=== PATIENT | female | born 1945 | race Caucasian/White ===

== ENCOUNTER → 2020-10-20 12:34 | Outpatient (CLI) | payer MEDICARE, BC | END | disposition home or self-care (01) | LOC: D.LAB 12:16 | PROVIDERS: ATTEND Thoracic Surgery (Cardiothoracic Vascular Surgery) | DX: Z11.52 Encounter for screening for COVID-19 (principal) ==

== ENCOUNTER 2020-10-26 13:42 | Inpatient (IN) | payer MEDICARE, BC ==
[~2020-10-26] VITALS: Ht 165.1 cm; Wt 64.7 kg
[2020-10-26] MEDS ORDERED: BAYER CHEWABLE81 MG PO (14:22)
[2020-10-26] MEDS ORDERED: CRESTOR5 MG PO (14:23)
[2020-10-26] MEDS ORDERED: MOBIC7.5 MG PO (14:23)
[2020-10-26] MEDS ORDERED: CENTRUM SILVER1 EAC3 PO (14:23)
[2020-10-26] MEDS ORDERED: VITAMIN D325 MC1 PO (14:23)
[2020-10-26] MEDS ORDERED: TRIAMTERENE-HC1 EAC3 PO (14:24)
[2020-10-26] MEDS ORDERED: VITAMIN B-122500 MCG PO (14:24)
[2020-10-26] MEDS ORDERED: [UNRECOGNIZED DRUG - CODE] PO (14:25)
[2020-10-26 15:41] LABS: BILIRUBIN NEGATIVE (NEGATIVE); KETONE NEGATIVE (NEGATIVE); NITRITE NEGATIVE (NEGATIVE); UROBILINOGEN NORMAL mg/dL (< 2)
[2020-10-26 17:02] LABS: HEMATOCRIT 37.3 % (36.0-48.0); HEMOGLOBIN 13.1 g/dL (12-16); MCH 31.6 pg (26.0-34.0); MCHC 35.1 g/dL (31.0-37.0); MCV 89.9 fL (80.0-100.0); MEAN PLATELET VOLUME 8.9 fL (7.4-10.4); RBC 4.15 10x6/uL (4.00-5.40); RDW 12.1 % (11.5-14.5); WBC 7.6 10x3/uL (4.8-10.8)
[2020-10-26 17:09] LABS: APTT 30.3 SECONDS (22.8-39.4); INR 1.07 (0.85-1.17); PROTIME 12.9 SECONDS (11.6-15.0)
[2020-10-26 17:18] LABS: ALBUMIN 4.4 g/dL (3.4-5.0); ANION GAP 11.9 mmol/L (8-16); BILIRUBIN - TOTAL 0.3 mg/dL (0.2-1.3); CALCIUM 9.7 mg/dL (8.5-10.1); CARBON DIOXIDE 29.8 mmol/L (21.0-32.0); CREATININE - SERUM 0.9 mg/dL (0.6-1.3); PROTEIN - SERUM 7.7 g/dL (6.4-8.2)
[2020-10-26 17:23] LABS: POTASSIUM - SERUM 2.7 mmol/L (3.5-5.1)
[2020-10-30] VITALS (21 sets, daily range): BP systolic 86–146; BP diastolic 42–78; BMI 23.6; BMI 28.1
--- NOTE | 2020-10-30 12:45 | NUR ---
PT ARRIVED VIA BED, RR EVEN AND UNLABORED ON 15L SIMPLE MASK. VSS (SEE FLOWSHEET FOR DETAILS). PT ABLE TO FOLLOW SIMPLE COMMANDS, GROGGY, BUT AROUSES WITH VERBAL STIMULI. INCISION WITH X2 CHEST TUBES NOTED TO LEFT LATERAL CHEST. DRESSING CDI. LEFT SUBCLAVIAN CVL NOTED. NITRO INFUSING @ 5 MLS/HR. NS INFUSING @ 10MLS/HR. PT IS ORIENTED X4. EPIDURAL NOTED TO LOWER BACK. INFUSING FENTANYL PER ANESTHESIA. DENIES NEEDS OR PAIN AT THIS TIME. BED RAILS UP X2.
--- NOTE | 2020-10-30 18:33 | NUR ---
PT INSTRUCTED ON USE OF INCENTIVE SPIROMETER. ABLE TO REACH 1000. VEBALIZED UNDERSTANDING AND RETURN DEMONSTRATED.
--- NOTE | 2020-10-30 19:17 | NUR ---
I have reviewed this patient and I concur with the Shift Assessment completed by the Licensed Practical Nurse today this shift.
--- NOTE | 2020-10-30 19:30 | NUR ---
REPORT REC'D AND CARE ASSUMED, REC'D PT SITTING UP IN BED VISITING WITH SIG OTHER, AWAKE, ALERT, AND ORIENTED X 4, O2 @ 2 LITERS VIA NC, PT DENIES PAIN AT THIS TIME, LDLSCL DRSG CDI WITH PLASMALYTE @ 3O AND ZINACEF @ 12.8CC/HR, LEFT LATERAL INCISION CDI, LEFT LATERAL CT TO 20CM H2O SUCTION, NO AIR LEAK NOTED, LEFT RADIAL SEKOU WITH FLEXION BOARD IN USE, SEKOU LEVELED AND ZEROED WITH RETURN OF APPROPRIATE WAVEFORM, DODSON PATENT DRAINING CLEAR YELLOW URINE, BILAT TEDS AND SCDS INTACT AND ON, EPIDURAL TAPED SECURELY TO LOWER BACK INFUSING @ 4MG/HR WITH 3MG Q15MIN BREAKTHROUGH BOLUS, PPP, AIR OVERLAY MATTRESS IN USE, ICE CHIPS PROVIDED ON REQUEST, BED IN LOW POSITION, CALL LIGHT IN REACH.
--- NOTE | 2020-10-30 20:55 | NUR ---
EVENING MEDS GIVEN, SIG OTHER REMAINS AT BS VISITING WITH PATIENT, PT DENIES PAIN OR NEEDS, USING EPIDURAL BOLUS BUTTON NEEDED, VSS.
--- NOTE | 2020-10-30 23:30 | NUR ---
BP DECREASED TO 88/45, PT AWAKE WATCHING TV, REPOSITIONED IN BED BP CONTINUES TO DROP BELOW 90 SYSTOLIC, NEOSYNEPHRINE GTT BEGAN AT 0.1MCG/KG/MIN OR 2.3CC, WILL MONITOR CLOSELY FOR CHANGES.
[2020-10-31] VITALS (45 sets, daily range): BP systolic 92–151; BP diastolic 41–76; BMI 29.3
--- NOTE | 2020-10-31 02:00 | NUR ---
TITRATING JUAN GTT NEEDED, ATTEMPTING TO WEAN AT THIS TIME
[2020-10-31 05:41] LABS: BASOPHILS 0.1 % (0-2); EOSINOPHILS 0 % (0-7); HEMATOCRIT 29.1 % (36.0-48.0); HEMOGLOBIN 10.5 g/dL (12-16); IMMATURE GRANULOCYTES 0.3 % (0-5); LYMPHOCYTE ABS# 0.76 10x3/uL (1.18-3.74); LYMPHOCYTES 7.8 % (15-50); MCHC 36.1 g/dL (31.0-37.0); MCV 88.7 fL (80.0-100.0); MEAN PLATELET VOLUME 8.8 fL (7.4-10.4); MONOCYTES 10.4 % (2-11); NEUTROPHIL ABS# 7.96 10x3/uL (1.56-6.13); NEUTROPHILS 81.4 % (40-80); PLATELET COUNT 226 10x3/uL (130-400); RBC 3.28 10x6/uL (4.00-5.40); WBC 9.8 10x3/uL (4.8-10.8)
[2020-10-31 06:13] LABS: ALBUMIN 3.1 g/dL (3.4-5.0); ANION GAP 15.4 mmol/L (8-16); BILIRUBIN - TOTAL 0.27 mg/dL (0.2-1.3); CALCIUM 8.1 mg/dL (8.5-10.1); CARBON DIOXIDE 22.7 mmol/L (21.0-32.0); CREATININE - SERUM 1.1 mg/dL (0.6-1.3); POTASSIUM - SERUM 3.1 mmol/L (3.5-5.1); PROTEIN - SERUM 5.7 g/dL (6.4-8.2)
--- NOTE | 2020-10-31 14:51 | OP ---
PATIENT NAME: ISABELLE LI MEDICAL RECORD: [id number] :47 LOCATION:[facility] [address] [facility].[id number] ADMISSION DATE:10/30/20 SURGEON: GRAY ISSA MD DATE OF OPERATION: 10/30/2020 SURGEON: Gray Issa MD PROCEDURE PERFORMED: Left video-assisted thoracoscopic surgery with wedge resection left upper lobe, left upper lobectomy, mediastinal lymph node dissection, bronchoscopy. PREOPERATIVE DIAGNOSIS: Invasive adenocarcinoma. POSTOPERATIVE DIAGNOSIS: Invasive adenocarcinoma, T1 N0 M0. ANESTHESIA: Double lumen general endotracheal anesthesia. ESTIMATED BLOOD LOSS: 25 cc. COMPLICATIONS: None. SPECIMENS: 1. Wedge resection, left upper lobe. 2. Lobectomy left upper lobe. 3. Lymph nodes from inferior pulmonary ligament, subcarinal, inferior hilar, interlobar, peribronchial. No sizable AP window lymph node was identified. COMPLICATIONS: None. CONDITION: Stable. DISPOSITION: ICU. OPERATIVE FINDINGS: 1. Thoracoscopy with no adhesions at the site of previous radiation therapy for unrelated tumor and a small posterior working thoracotomy as the tumor was within the lung parenchyma and not easily visualized by thoracoscopy. The tumor was wedged and again returned invasive adenocarcinoma. The fissures were nearly complete. 2. Thoracoscopic guided dissection with lobectomy bronchus airtight under 20 cm of water. 3. Five lymph node stations dissected. 4. Rib fracture anteriorly at the site of the camera and the small portion of the rib was removed under direct visualization. INDICATION: Adenocarcinoma. PROCEDURE IN DETAIL: The patient was brought to the operating suite. General anesthesia was obtained, the patient prepped and draped in the right lateral decubitus position with appropriate padding. The scope was placed in approximately the anterior axillary line, directed upwardly. No intrathoracic adhesions were noted. The fissures were well developed. A posterior working thoracotomy was performed. The tumor was felt under direct palpation and wedge resection was used with staple lines to remove the tumor, which was sent for frozen section. The hilar dissection was completed and after the tumor returned OPERATIVE REPORT [id number] ISABELLE LI again invasive carcinoma, vascular staple line on the pulmonary artery branches and the superior pulmonary vein, the inferior pulmonary vein had previously been identified on freeing the hilum. The bronchus was clamped, lower lobe briefly inflated, the bronchus was divided. The lymph node stations were then dissected out, marked with clips. Lung reinflated, no air leak. Thorough irrigation was performed. A small section anterior of the rib was additionally removed as it had fractured and cryotherapy of the nerve roots 5 through 8 were then performed. Marcaine was instilled in the nerve roots as well as in the site where the camera had been in the chest tube sites. Chest tubes were placed apically and inferiorly. The wound was closed with pericostal sutures, 2 running muscle layers, subcutaneous and cuticular. No air leak noted when extubated. Bronchoscopy confirmed no endobronchial lesions and previously had confirmed placement of the tube. The patient to ICU stable. TRANSINT:[id number] Voice Confirmation ID: [id number] DOCUMENT ID: [id number] GRAY ISSA MD at 1451 CC: NIKKI PINEDO MD and NIKKI MARIE [id number] DICTATION DATE: 10/30/20 1340 CURRICULUM AND ASSESSMENT DIRECTOR: 10/30/20 2208 ADM IN [facility] [address] [place] [address]
--- NOTE | 2020-10-31 14:55 | NUR ---
PER MD Ratliff VERBAL ORDER-PT LEFT RADIAL ART LINE REMOVED W/O COMPLICATION. DIRECT PRESSURE HELD FOR [address] IN PL[address]- CLEAN, DRY AND INTACT. CVP D/C. WILL CONTINUE TO MONITOR.
--- NOTE | 2020-10-31 18:28 | NUR ---
UPON 0700 ASSESSMENT PT NOTED TO HAVE FENT/BUPIVCAINE EIPDURAL IN PLACE, INFUSING AT BASAL RATE OF 4mL/HR WITH 3mL PT ADMIN BOLUS Q 15MIN. NO MAX LOCKOUT. EPIDURAL SITE CLEAN, DRY, INTACT, NO S/S OF COMPLICATION. PT AAOX4,VSS, PT REPORTS NO ADVERSE REACTIONS. WILL CONTINUE TO MONITOR.
[2020-11-01] VITALS (35 sets, daily range): BP systolic 76–184; BP diastolic 45–95
[2020-11-01 05:24] LABS: BASOPHILS 0.1 % (0-2); EOSINOPHILS 1.2 % (0-7); HEMATOCRIT 30.9 % (36.0-48.0); HEMOGLOBIN 10.7 g/dL (12-16); IMMATURE GRANULOCYTES 0.5 % (0-5); LYMPHOCYTES 8.3 % (15-50); MCH 30.8 pg (26.0-34.0); MCHC 34.6 g/dL (31.0-37.0); MEAN PLATELET VOLUME 9.4 fL (7.4-10.4); MONOCYTES 8.1 % (2-11); NEUTROPHIL ABS# 7.85 10x3/uL (1.56-6.13); NEUTROPHILS 81.8 % (40-80); PLATELET COUNT 242 10x3/uL (130-400); RBC 3.47 10x6/uL (4.00-5.40); RDW 12.1 % (11.5-14.5); WBC 9.6 10x3/uL (4.8-10.8)
[2020-11-01 05:42] LABS: ALBUMIN 2.6 g/dL (3.4-5.0); BILIRUBIN - TOTAL 0.53 mg/dL (0.2-1.3); CALCIUM 8.1 mg/dL (8.5-10.1); CARBON DIOXIDE 27.1 mmol/L (21.0-32.0); PROTEIN - SERUM 5.4 g/dL (6.4-8.2)
[2020-11-01 05:52] LABS: CREATININE - SERUM 0.8 mg/dL (0.6-1.3)
[2020-11-01 05:53] LABS: ANION GAP 9.3 mmol/L (8-16); POTASSIUM - SERUM 4.4 mmol/L (3.5-5.1)
--- NOTE | 2020-11-01 06:17 | NUR ---
DR. ISSA MADE AWARE OF CRITICAL SODIUM OF 119, NO ORDERS RECEIVED.
--- NOTE | 2020-11-01 07:00 | NUR ---
RECEIVED BEDSIDE REPORT ON PATIENT AND ASSUMED CARE. PATIENT ALERT AND ORIENTED X 4, VSS, AT BEDSIDE. ON O2 VIA NC AT 2 LPM WITH SPO2 95%, BBS WITH EXPIRATORY WHEEZES NOTED. CHEST TUBE X 2 TO LEFT LATERAL CHEST WITH INTERMITTENT AIR LEAK NOTED, DRESSING C/D/I, TO 20 CM WALL SUCTION. LEFT SUBCLAVIAN CVL, NSL, WITH DRESSING C/D/I. DODSON CATH IN PLACE WITH CLEAR YELLOW UOP NOTED. CM - SR RATE 90. SCD'S AND OBED HOSE IN PLACE AND ON. HEAD TO TOE ASSESSMENT COMPLETED.
--- NOTE | 2020-11-01 09:21 | NUR ---
MORNING MEDS PER AUG, CHEST TUBE DRAINAGE CONTAINER CHANGED OUT, INTERMITTENT AIR LEAK NOTED. CENTRAL LINE DRESSING TO LEFT SUBCLAVIAN CHANGED. VSS. NO NEEDS AT THIS TIME.
--- NOTE | 2020-11-01 10:04 | NUR ---
DR. FUNEZ AT ROOM FOR ROUNDS, UPDATED AND EXAMINES PATIENT.
--- NOTE | 2020-11-01 11:00 | NUR ---
REASSESSMENT COMPLETED. VSS. NO NEEDS AT THIS TIME.
--- NOTE | 2020-11-01 12:20 | NUR ---
Nutrition Follow-up: POD 2 VATS. Eating well. Na 119; noted NS started. Diet: Regular PO intake: 85% avg x 4 meals Wt: 176.3# (11/01) Labs noted: Na 119, K+ 4.4, Ca 8.1, Alb 2.6 Meds noted: KDur, vit B12, vit D, Protonix, Zofran, NS @ 100 -RD follow-up: 11/03
--- NOTE | 2020-11-01 13:00 | NUR ---
PATIENT C/O HER STOMACH AND BACK ITCHING AFTER SHE APPLIED SOME LOTION TO HER STOMACH THAT SHE HAD BROUGHT FROM HOME. NO SIGNS OF REDNESS OR RASH. SPOKE TO DR. AGRAWAL TO GIVE 25 MG OF BENADRYL PO Q12HRS PRN.
--- NOTE | 2020-11-01 13:32 | NUR ---
PATIENT TANGLED FOR APPROXIMATELY 15 MINUTES ON SIDE OF BED. TOLERATED WELL. VSS.
--- NOTE | 2020-11-01 15:00 | NUR ---
REASSESSMENT COMPLETED. VSS. RESTING QUIETLY WITH EYES CLOSED, EASILY AROUSED BY VOICE. NO NEEDS AT THIS TIME.
[2020-11-01 16:02] LABS: CALC OSMOLALITY 247 mosm/kg (275-300); CALCIUM 8.7 mg/dL (8.5-10.1); CARBON DIOXIDE 25.5 mmol/L (21.0-32.0); CHLORIDE - SERUM 91 mmol/L (98-107); CREATININE - SERUM 0.6 mg/dL (0.6-1.3); GLUCOSE 89 mg/dL (74-106); POTASSIUM - SERUM 4.5 mmol/L (3.5-5.1); SODIUM 123 mmol/L (136-145); UREA NITROGEN 14 mg/dL (7-18); eGFR NON AFRICAN AMERICAN > 90 mL/min (90-120)
[2020-11-02] VITALS (38 sets, daily range): BP systolic 94–189; BP diastolic 52–100
[2020-11-02 04:54] LABS: BASOPHILS 0.3 % (0-2); EOSINOPHILS 3.8 % (0-7); HEMATOCRIT 32.1 % (36.0-48.0); HEMOGLOBIN 11.1 g/dL (12-16); IMMATURE GRANULOCYTES 1.2 % (0-5); LYMPHOCYTE ABS# 1.04 10x3/uL (1.18-3.74); LYMPHOCYTES 15.2 % (15-50); MCH 31.4 pg (26.0-34.0); MCHC 34.6 g/dL (31.0-37.0); MCV 90.9 fL (80.0-100.0); MEAN PLATELET VOLUME 8.7 fL (7.4-10.4); MONOCYTES 14.5 % (2-11); NEUTROPHIL ABS# 4.44 10x3/uL (1.56-6.13); PLATELET COUNT 229 10x3/uL (130-400); RBC 3.53 10x6/uL (4.00-5.40); RDW 12.1 % (11.5-14.5)
[2020-11-02 04:55] LABS: WBC 6.8 10x3/uL (4.8-10.8)
[2020-11-02 05:43] LABS: ALBUMIN 2.5 g/dL (3.4-5.0); ALKALINE PHOSPHATASE 57 U/L (30-120); BILIRUBIN - TOTAL 0.54 mg/dL (0.2-1.3); CALCIUM 8.4 mg/dL (8.5-10.1); CARBON DIOXIDE 26.1 mmol/L (21.0-32.0); CHLORIDE - SERUM 98 mmol/L (98-107); CREATININE - SERUM 0.6 mg/dL (0.6-1.3); GLUCOSE 79 mg/dL (74-106); PROTEIN - SERUM 5.3 g/dL (6.4-8.2); SODIUM 130 mmol/L (136-145); eGFR NON AFRICAN AMERICAN > 90 mL/min (90-120)
[2020-11-02 05:46] LABS: ALT (SGPT) 56 U/L (10-68); CALC OSMOLALITY 258 mosm/kg (275-300); UREA NITROGEN 10 mg/dL (7-18)
--- NOTE | 2020-11-02 09:35 | NUR ---
PT AWAKE AND ORIENTED. DENIES PAIN. AT BS.
--- NOTE | 2020-11-02 10:26 | NUR ---
NITRO INITIATED AT 5MCG/MIN FOR SBP 185/94.
--- NOTE | 2020-11-02 11:40 | NUR ---
SBP 180. NITRO GTT INITIATED.
--- NOTE | 2020-11-02 15:07 | NUR ---
PT SUCTIONED BY RT ORDERED BY DR ISSA.
--- NOTE | 2020-11-02 19:30 | NUR ---
BEDSIDE SHIFT REPORT RECIEVED. PT AAOX4, AT BEDSIDE. SANTOS AND ASSISTS IN REPOSTIONING. 02 VIA NC @3L, HUMIDITY ADDED. LEFT CHEST TUBE X2, TO WATERSEAL WITH SUCTION AT 20CM, CHEST TUBE SUCURED. LEFT SC CVL WITH NS @ 50ML/HR AND NITRO DRIP STOPPED AT 1900 PER OFFGOING RN. EPIDURAL INFUSING, DRESSING TO THORACIC AREA, INTACT AND EPIDURAL SITE WITHOUT COMPLICATIONS, FENT/BUPIV WITH CONTINOUS RATE OF 4ML/HR, WITH A BUSINESS OFFICE TECHNICIAN DOSE SET OF 3ML, 15MIN LOCKOUT. PT REPORTS NOT HAVING BATH SINCE SURGERY ON THE , WILL GIVE COMPLETE BED BATH. CALL LIGHT WITHIN REACH. NO DISTRESS NOTED.
--- NOTE | 2020-11-02 22:00 | NUR ---
PT GIVEN FULL BED BATH WITH SOAP AND CHG, HAIR WASHED, DENTURE AND ORAL CARE, FULL LINEN CHANGE. DRESSING TO CHEST TUBE WITH DRAINAGE NOTED, REMOVED, CLEANED SITE, APPLIED OCCLUSIVE DRESSING. DRESSING TO LEFT POSTERIOR FLANK INCISION SITE, CLEAN/DRY/INTACT WITHOUT DRAINAGE NOTED. PT POSTIONED FOR COMFORT, NO BREAKDOWN NOTED TO BUTTOCKS, EDUCATED PT ON NEED TO REPOSTION AND RELIEVE PRESSURE. REMINDED PT OF NPO AFTER MIDNIGHT ORDER. CALL LIGHT WITHIN REACH.
[2020-11-03] VITALS (49 sets, daily range): BP systolic 69–188; BP diastolic 37–110
[2020-11-03 03:22] LABS: BASOPHILS 0.1 % (0-2); EOSINOPHILS 2.9 % (0-7); HEMATOCRIT 30.1 % (36.0-48.0); HEMOGLOBIN 10.4 g/dL (12-16); IMMATURE GRANULOCYTES 1.4 % (0-5); LYMPHOCYTE ABS# 1.24 10x3/uL (1.18-3.74); MCH 31.3 pg (26.0-34.0); MCHC 34.6 g/dL (31.0-37.0); MCV 90.7 fL (80.0-100.0); MONOCYTES 12.9 % (2-11); NEUTROPHIL ABS# 5.61 10x3/uL (1.56-6.13); NEUTROPHILS 67.7 % (40-80); PLATELET COUNT 264 10x3/uL (130-400); RBC 3.32 10x6/uL (4.00-5.40); WBC 8.3 10x3/uL (4.8-10.8)
[2020-11-03 03:36] LABS: ALBUMIN 2.3 g/dL (3.4-5.0); ALKALINE PHOSPHATASE 58 U/L (30-120); ALT (SGPT) 49 U/L (10-68); BILIRUBIN - TOTAL 0.36 mg/dL (0.2-1.3); CALC OSMOLALITY 261 mosm/kg (275-300); CALCIUM 8.5 mg/dL (8.5-10.1); CARBON DIOXIDE 27.5 mmol/L (21.0-32.0); CHLORIDE - SERUM 96 mmol/L (98-107); CREATININE - SERUM 0.7 mg/dL (0.6-1.3); GLUCOSE 95 mg/dL (74-106); POTASSIUM - SERUM 4.2 mmol/L (3.5-5.1); PROTEIN - SERUM 5.3 g/dL (6.4-8.2); SODIUM 131 mmol/L (136-145); UREA NITROGEN 11 mg/dL (7-18); eGFR NON AFRICAN AMERICAN 87 mL/min (90-120)
--- NOTE | 2020-11-03 03:47 | NUR ---
pt woke with pain rated 10/10 to left upper chest and shoulder, encouraged pt to use DRAPERY AND UPHOLSTERY MEASURER, educated on fast acting pain med in epidural, pt verbalized understanding, pushed DRAPERY AND UPHOLSTERY MEASURER, waited at pt bedside to assist to push upward bound director again, pt reports easing of symptoms. call light and upward bound director within reach.
--- NOTE | 2020-11-03 08:54 | NUR ---
phoned anesthesia and reported hypotention. DR MENDOZA HERE AND DECREASED THE EPIDURAL INFUSION RATE. BP IMPROVING QUICKLY. PT DENIES PAIN.
--- NOTE | 2020-11-03 11:21 | NUR ---
BRONCHOSCOPY BY DR FUNEZ. TIVA BY RT. DR ISSA IN ROOM ON ROUNDS. CONCENTS ON CHART.
--- NOTE | 2020-11-03 12:27 | NUR ---
Nutrition Follow-up: POD 4 VATS. NPO for bronch this AM. Good/fair PO intake otherwise. Wt: 167# (11/03) Last BM: 10/29 per chart; nursing reports active BS Labs noted: Na 131, Alb 2.3 Meds noted: KDur, vit B12, vit D, Protonix, NS @ 100 -Encourage PO intake and honor food preferences within diet restrictions. -RD follow-up: 11/06
--- NOTE | 2020-11-03 12:56 | NUR ---
PT EXTUBATED TO 4LNC BY RT. PT AWAKE AND ORIENTED. AT BS.
--- NOTE | 2020-11-03 19:30 | NUR ---
BEDSIDE SHIFT REPORT RECIEVED. PT AAOX4. CHEST TUBES TO WATERSEAL, DRESSING C/D/I AND CHEST TUBES SUCURED. LEFT SC CVL WITH NITRO GTT @10MCG/MIN, NS @50ML/HR. EPIDURAL SITE ASSESSED, FENT/BUV RATE SET AT 3ML/HR WITH TRIM MECHANIC RATE OF 3ML WITH 15 MIN LOCKOUT. PT REPORTS PAIN IS UNDER CONTROL AT THIS TIME, SITTING UP IN BED, SANTOS PANEL SEWER AND DORSAL FLEXATION STRONG. PT GOING HOME FOR NIGHT. PT DECLINED BED BATH TONIGHT, SUZIE/DODSON CARE PREFORMED. CALL LIGHT WITHIN REACH, WILL CONT TO ASSESS.
[2020-11-04] VITALS (49 sets, daily range): BP systolic 84–179; BP diastolic 43–99; Ht 165.1 cm; Wt 64.7 kg
[2020-11-04 06:14] LABS: BASOPHILS 0.5 % (0-2); EOSINOPHILS 5.8 % (0-7); HEMATOCRIT 32.3 % (36.0-48.0); IMMATURE GRANULOCYTES 2.2 % (0-5); LYMPHOCYTE ABS# 1.46 10x3/uL (1.18-3.74); LYMPHOCYTES 16.5 % (15-50); MCH 31.8 pg (26.0-34.0); MCHC 34.1 g/dL (31.0-37.0); MEAN PLATELET VOLUME 9.2 fL (7.4-10.4); MONOCYTES 11.7 % (2-11); NEUTROPHILS 63.3 % (40-80); RBC 3.46 10x6/uL (4.00-5.40); RDW 12.4 % (11.5-14.5); WBC 8.8 10x3/uL (4.8-10.8)
[2020-11-04 06:15] LABS: MCV 93.4 fL (80.0-100.0); PLATELET COUNT 348 10x3/uL (130-400)
[2020-11-04 06:27] LABS: ALBUMIN 2.5 g/dL (3.4-5.0); ALKALINE PHOSPHATASE 63 U/L (30-120); ALT (SGPT) 43 U/L (10-68); BILIRUBIN - TOTAL 0.29 mg/dL (0.2-1.3); CALC OSMOLALITY 267 mosm/kg (275-300); CALCIUM 8.8 mg/dL (8.5-10.1); CARBON DIOXIDE 27.2 mmol/L (21.0-32.0); CHLORIDE - SERUM 102 mmol/L (98-107); CREATININE - SERUM 0.6 mg/dL (0.6-1.3); GLUCOSE 92 mg/dL (74-106); POTASSIUM - SERUM 4.6 mmol/L (3.5-5.1); PROTEIN - SERUM 5.6 g/dL (6.4-8.2); SODIUM 134 mmol/L (136-145); UREA NITROGEN 13 mg/dL (7-18); eGFR NON AFRICAN AMERICAN > 90 mL/min (90-120)
--- NOTE | 2020-11-04 07:00 | NUR ---
RECEIVED BEDSIDE REPORT AND ASSUMED CARE OF PATIENT. PATINET SITTING UP IN BED, VSS, ALERT AND ORIENTED X 4. O2 VIA NC AT 3 LPM WITH SPO2 96%, BBS - CLEAR BUT DIMINISHED, CM - NSR RATE 78, RR 20. LEFT SUBCLAVIAN CVL, DRESSING C/D/I INFUSING NS AT 100 ML/HR AND NTG AT 25 MCG/MIN (7.5 ML/HR). DODSON CATH IN PLACE WITH 340 ML OF CLEAR YELLOW UOP NOTED. CHEST TUBE X 2 TO LEFT LATERAL CHEST WITH SEROUS OUTPUT NOTED, POSTERIOR WITH INTERMITTENT AIR LEAK. UTILIZING IS - [address], INFUSING FENTANYL/BUPIVACAINE AT 3 ML/HR. HEAD TO TOE ASSESSMENT COMPLETED.
--- NOTE | 2020-11-04 08:01 | NUR ---
PATIENT SITTING UP IN BED, ASSISTED WITH SETUP OF BREAKFAST TRAY. VSS. NO NEEDS AT THIS TIME.
--- NOTE | 2020-11-04 09:50 | NUR ---
DR. ISSA AT ROOM UPDATED AND EXAMINES PATIENT.
--- NOTE | 2020-11-04 10:25 | NUR ---
DR. FUNEZ AT ROOM UPDATED AND EXAMINES PATIENT.
--- NOTE | 2020-11-04 10:45 | NUR ---
DR. AGRAWAL AT ROOM UPDATED AND EXAMINES PATIENT.
--- NOTE | 2020-11-04 11:08 | NUR ---
REASSESSMENT COMPLETED. VSS. NTG GTT STOPPED. DODSON CATH REMOVED PER ORDER.
--- NOTE | 2020-11-04 11:45 | NUR ---
PATIENT UP TO BEDSIDE CHAIR WITH ASSIST. VSS. AT ROOM. NO NEEDS AT THIS TIME.
--- NOTE | 2020-11-04 11:59 | NUR ---
PATIENT GIVEN LUNCH TRAY, RATES PAIN 1/10 AT THIS TIME. NO NEEDS AT THIS TIME.
--- NOTE | 2020-11-04 13:23 | NUR ---
PATIENT ASSISTED UP TO BEDSIDE COMMODE AND THEN BACK TO CHAIR, VOIDS APPROXIMATELY 150 ML OF URINE.
[2020-11-04 14:09] LABS: ACID FAST SMEAR Negative (()); AFB SPECIMEN PROCESSING Concentration (())
--- NOTE | 2020-11-04 14:52 | NUR ---
ASSISTED PATIENT UP TO BEDSIDE COMMODE.
--- NOTE | 2020-11-04 15:06 | NUR ---
REASSESSMENT COMPLETED. VSS. NO NEEDS AT THIS TIME.
--- NOTE | 2020-11-04 20:00 | NUR ---
BEDSIDE REPORT RECEIVED, PT SITTING ON BEDSIDE COMMODE, REQUEST BATH TONIGHT, SUGGESTED WE GIVE BATH NOW WHILE OOB, PT AGREED. L SC CVL WITH NS @50ML/HR, NITRO GTT OFF AT THIS TIME. CHEST TUBES TO WATERSEAL AND SECURED, DRESSING C/D/I. LEFT FOR NIGHT AFTER BEDSIDE REPORT. FULL BATH GIVEN WITH SOAP/WATER/CHG, HAIR WASHED, DENTURE CARE AND ORAL CARE, TEDS REPLACED. LINENS ON BED CHANGED. PRN NORCO GIVEN, DISCUSSED PAIN MANAGEMENT PLAN FOR TONIGHT, EPIDURAL D/C'D DURING DAYSHIFT. ASSISTED INTO BED WITH ONE HAND ASSIST. CALL LIGHT AND PERSONAL BELONGINGS WITHIN REACH. NO COMPLAINTS OR UNMET NEEDS VOICED AT THIS TIME.
[2020-11-05] VITALS (56 sets, daily range): BP systolic 89–171; BP diastolic 46–89
--- NOTE | 2020-11-05 02:13 | NUR ---
PT SLEEPING WELL UNTIL APPROX 0130, PT WOKE AND NEEDED TO VOID, ASSISTED TO BSC, VOIDED 400ML, ASSISTED BACK TO BED, POSTIONED FOR COMFORT. GAVE PRN TORADOL FOR MODERATE PAIN TO LEFT FLANK. PT DENIES COMPLAINTS OR UNMET NEEDS, CALL LIGHT WITHIN REACH.
[2020-11-05 04:14] LABS: BASOPHILS 0 % (0-2); EOSINOPHILS 0 % (0-7); HEMATOCRIT 31.1 % (36.0-48.0); HEMOGLOBIN 10.9 g/dL (12-16); LYMPHOCYTE ABS# 0.56 10x3/uL (1.18-3.74); LYMPHOCYTES 8.4 % (15-50); MCH 31.9 pg (26.0-34.0); MEAN PLATELET VOLUME 8.6 fL (7.4-10.4); MONOCYTES 4.5 % (2-11); NEUTROPHIL ABS# 5.64 10x3/uL (1.56-6.13); NEUTROPHILS 85.1 % (40-80); PLATELET COUNT 341 10x3/uL (130-400); RBC 3.42 10x6/uL (4.00-5.40); RDW 12.2 % (11.5-14.5); WBC 6.6 10x3/uL (4.8-10.8)
[2020-11-05 04:17] LABS: MCV 90.9 fL (80.0-100.0)
--- NOTE | 2020-11-05 04:20 | NUR ---
PT REPORTS BEING UNABLE TO SLEEP SINCE WOKE FOR BREATHING TREATMENT AND CHEST XRAY, PT UNSURE IF PAIN MED IS NEEDED, REPORTS PERSISTANT DISCOMFORT AND OCCASIONAL SHARP PAINS AT CHEST TUBE SITES. PT HYPERTENSIVE AT THIS TIME DISPITE INCREASING NITRO DRIP DOSE, GAVE PRN MORPHINE AND ZOFRAN. RE-POSTIONED PT FOR COMFORT AND PRESSURE RELIEF, PT REPORTS DISCOMFORT AND SHARP PAINS ARE RELIEVED. 02 VIA NC TITRATED DOWN TO 1L, PT WITH SATS ABOVE 95% SINCE TITRATED TO 2L EARLIER DURING SHIFT. CALL LIGHT WITHIN REACH, PT DENIES COMPLAINTS OR UNMET NEEDS.
[2020-11-05 04:28] LABS: ALBUMIN 2.6 g/dL (3.4-5.0); ALKALINE PHOSPHATASE 63 U/L (30-120); ALT (SGPT) 40 U/L (10-68); BILIRUBIN - TOTAL 0.34 mg/dL (0.2-1.3); CALC OSMOLALITY 265 mosm/kg (275-300); CALCIUM 9.3 mg/dL (8.5-10.1); CHLORIDE - SERUM 97 mmol/L (98-107); CREATININE - SERUM 0.6 mg/dL (0.6-1.3); GLUCOSE 133 mg/dL (74-106); MAGNESIUM - SERUM 1.8 mg/dL (1.8-2.4); PHOSPHOROUS 3.1 mg/dL (2.5-4.9); POTASSIUM - SERUM 4.3 mmol/L (3.5-5.1); PROTEIN - SERUM 5.7 g/dL (6.4-8.2); SODIUM 132 mmol/L (136-145); UREA NITROGEN 11 mg/dL (7-18); eGFR NON AFRICAN AMERICAN > 90 mL/min (90-120)
--- NOTE | 2020-11-05 06:40 | NUR ---
PRN NORCO GIVEN, PT HYPERTENSIVE, NITRO GTT INCREASED TO 33MCG/MIN. SBP REMAINS ABOVE 160, GAVE PRN HYDRALAZINE IVP. ENCOURAGED PT TO ATTEMPT TO REST WHILE BP IS ELEVATED. PT DENIES ANY CHEST PAIN OR INTENSE PAIN, REPORTS PERSISTANT DISCOMFORT IN LEFT RIBCAGE AND NECK AND SHOULDERS. POSTIONED FOR COMFORT. NO ACUTE DISTRESS NOTED. RESP EVEN/UNLABORED. SP02 97% ON 1L VIA NC. CALL LIGHT WITHIN REACH, WILL CONT TO MONITOR AND REPORT TO ONCOMING R.N.
--- NOTE | 2020-11-05 21:22 | NUR ---
BEDSIDE SHIFT REPORT RECEIVED @ 1900, PT SITTING IN RECLINER AT TIME. SP02 @98% ON 02 VIA NC @ 1L, SUGGESTED TAKING OFF 02 TO ASSESS 02 SAT ON ROOM AIR, PT REPORTS FEELING MORE COMFORTABLE ON 02 WHILE SLEEPING AND AMBULATING. LEFT SC CVL SL. PT DECLINED FULL BATH, SUZIE CARE, ORAL CARE, DENTURE CARE AND FULL LINEN CHANGE PREFORMED. ASSISTED PT TO BED AND POSTIONED FOR PRESSURE RELIEF AND COMFORT. CHEST TUBES ASSESSED AND SECURED, DRESSING C/D/I. PT REQUEST RT AND NURSING STAFF TO ALLOW PT TO SLEEP MUCH POSSIBLE WITHOUT INTERUPTION DUE TO POOR SLEEP PRIOR 2 NIGHTS, REQUEST TO DECLINE 0100 BREATHING TREATMENTS, AGREED THAT LONG VITALS REMAIN STABLE AND NO COMPLICATIONS WITH CHEST TUBES OR DYSPNEA, WILL ALLOW PT TO SLEEP THROUGH 0100 TREATMENT. STERIOD GIVEN EARLY PER PT REQUEST. LEFT FOR NIGHT, CALL LIGHT AND PERSONAL BELONGINGS WITHIN REACH.
[2020-11-06] VITALS (25 sets, daily range): BP systolic 124–171; BP diastolic 51–86
[2020-11-06 02:19] LABS: BASOPHILS 0.1 % (0-2); EOSINOPHILS 0 % (0-7); HEMATOCRIT 31.6 % (36.0-48.0); HEMOGLOBIN 10.9 g/dL (12-16); IMMATURE GRANULOCYTES 1.4 % (0-5); LYMPHOCYTE ABS# 0.61 10x3/uL (1.18-3.74); LYMPHOCYTES 6.2 % (15-50); MCH 31.5 pg (26.0-34.0); MCHC 34.5 g/dL (31.0-37.0); MCV 91.3 fL (80.0-100.0); MONOCYTES 3.4 % (2-11); NEUTROPHIL ABS# 8.68 10x3/uL (1.56-6.13); NEUTROPHILS 88.9 % (40-80); RBC 3.46 10x6/uL (4.00-5.40); RDW 12.4 % (11.5-14.5)
[2020-11-06 02:21] LABS: PLATELET COUNT 422 10x3/uL (130-400); WBC 9.8 10x3/uL (4.8-10.8)
[2020-11-06 02:37] LABS: ALKALINE PHOSPHATASE 61 U/L (30-120); ALT (SGPT) 42 U/L (10-68); BILIRUBIN - TOTAL 0.24 mg/dL (0.2-1.3); CALC OSMOLALITY 263 mosm/kg (275-300); CALCIUM 9.6 mg/dL (8.5-10.1); CHLORIDE - SERUM 96 mmol/L (98-107); CREATININE - SERUM 0.7 mg/dL (0.6-1.3); GLUCOSE 125 mg/dL (74-106); POTASSIUM - SERUM 4.8 mmol/L (3.5-5.1); SODIUM 130 mmol/L (136-145); eGFR NON AFRICAN AMERICAN 87 mL/min (90-120)
[2020-11-06 02:50] LABS: UREA NITROGEN 17 mg/dL (7-18)
--- NOTE | 2020-11-06 13:01 | NUR ---
Nutrition reassessment: Pt diet just advanced to regular as tolerated Pt sitting in chair; pain controlled at this time CT in place Labs reviewed No BM charted Wt: 169# s/p lobectomy Estimated nutritional needs remain the same as initial assessment on 10/31/20 Nutrition diagnosis: Inadequate oral intake R/T lobectomy AEB poor po intake at this time due to diet just advanced to regular today. Nutrition goals: - PO intake =/> 75% of meals, snacks - Meet est fluid needs - sTable dry wt Nutrition interventions: Will provide food choices with selective menus and honor food preferences. Will offer and encourage nutritional supplements. Follow-up: 11/08/20
--- NOTE | 2020-11-06 19:50 | NUR ---
BEDSIDE SHIFT REPORT RECIEVED @1850, PT SITTING IN RECLINER VISITING WITH . 02 VIA NC @1L. RESP EVEN/UNLABORED. LEFT SC CVL SL. PT REQUESTED TO AMBULATE IN [place], PT WALKED WITH 02 AND NURSE STOOD BESIDE PT AND SUCURED CHEST TUBE, PT WITH EVEN AND STEADY GAIT. WHEN BACK TO ROOM PT SAT IN RECLINER, LINENS CHANGED AND BASIN SET UP FOR BATH, PT GAVE CHG BATH, ASSISTED TO WASH HAIR. GAVE WARM APPLE JUICE TO ASSIST WITH B.M. IN ROOM, PT APPREAS COMFORTABLE IN RECLINER, CALL LIGHT WITHIN REACH.
[2020-11-07] VITALS (17 sets, daily range): BP systolic 92–177; BP diastolic 56–95
[2020-11-07 03:38] LABS: BASOPHILS 0.3 % (0-2); EOSINOPHILS 0 % (0-7); HEMATOCRIT 33.1 % (36.0-48.0); HEMOGLOBIN 11.6 g/dL (12-16); LYMPHOCYTES 6.9 % (15-50); MCH 31.7 pg (26.0-34.0); MCHC 34.9 g/dL (31.0-37.0); MCV 90.9 fL (80.0-100.0); MEAN PLATELET VOLUME 7.1 fL (7.4-10.4); MONOCYTES 2.5 % (2-11); NEUTROPHILS 90.3 % (40-80); PLATELET COUNT 497 10x3/uL (130-400); RBC 3.65 10x6/uL (4.00-5.40); RDW 12.7 % (11.5-14.5)
[2020-11-07 03:55] LABS: ALBUMIN 3.1 g/dL (3.4-5.0); BILIRUBIN - TOTAL 0.32 mg/dL (0.2-1.3); CALCIUM 9.2 mg/dL (8.5-10.1); CARBON DIOXIDE 31.3 mmol/L (21.0-32.0); POTASSIUM - SERUM 4.3 mmol/L (3.5-5.1)
--- NOTE | 2020-11-07 07:00 | NUR ---
RECEVIED BEDSIDE REPORT ON PATIENT AND ASSUMED CARE. PATIENT SITTING UP IN BEDSIDE CHAIR , VSS, ALERT AND ORIETNED X 4, NC AT 1 LPM WITH SPO2 94%, BBS - CLEAR AND DIMINISHED, CM - SR RATE 82, CVL LEFT SUBCLAVIAN IN PLACE, DRESSING C/D/I WITH SWAB CABS IN PLACE. CT TO LEFT CHEST TO WATER SEAL WITH 70 ML OF SEROUS OUTPUT NOTED. INTERMITTENT AIR LEAK NOTED. HEAD TO TOE ASSESSMENT COMPLETED.
--- NOTE | 2020-11-07 09:30 | NUR ---
DR. CARROLL AT ROOM UPDATED ON PATIENTS SODIUM LEVEL AND WILL CONSULT RENAL FOR HYPONATREMIA.
--- NOTE | 2020-11-07 10:01 | NUR ---
CONTACTED RENAL FILTER MACHINE OPERATOR DR. AMANDA HANLEY AND ADVIXED OF CONSULT.
--- NOTE | 2020-11-07 11:00 | NUR ---
REASSESSMENT COMPLETED. VSS. NO NEEDS AT THIS TIME.
--- NOTE | 2020-11-07 11:46 | NUR ---
PATIENT UP WALKING IN HALLWAY WITH PT. ON PORTABLE O2 AT 2 LPM. TOLERATES WELL. WALKS APPROXIMATELY 300 FT.
[2020-11-07] MEDS ORDERED: LOPRESSOR25 MG PO (13:21)
[2020-11-07] MEDS ORDERED: LISINOPRIL2.5 MG PO (13:24)
[2020-11-07] MEDS ORDERED: HYDROCODON-ACE1 EAC7 PO (13:34)
--- NOTE | 2020-11-07 13:43 | NUR ---
DR. ISSA AT ROOM PULLS CHEST TUBE. PATIENT IN BED, VSS. CVL DISCONTINUED PER ORDER.
--- NOTE | 2020-11-07 14:08 | NUR ---
PATIENT WALKED IN HALLWAY WITH PORTABLE O2 AT 2 LPM FOR APPROXIMATELY 300 FT. TOLERATED WELL, TO BEDSIDE CHAIR. NO NEEDS AT THIS TIME.
[2020-11-07] MEDS ORDERED: COMBIVENT RESPIM4 GM INH (14:23)
--- NOTE | 2020-11-07 14:40 | MORECARE ---
CASE MANAGEMENT DISCHARGE SUMMARY PATIENT: ISABELLE LI UNIT: [id number] ADM DATE: 10/30/20 AGE: 75 : 47 SEX: F ROOM/BED: [facility] AUTHOR: TREMAYNE CRAMER PHYSICIAN: REFERRING PHYSICIAN: GRAY ISSA MD DATE OF SERVICE: 11/07/20 Case Management Discharge Planning Summary DCP REVIEW SUMMARY ANTICIPATED D/C DATE: 11/07/2020 EXPECTED LOS : 8 CASE STATUS: DCP Initiated INITIAL REVIEW: 11/07/2020 INITIAL REVIEWER: Gabriela Damian FINAL DISCHARGE DISPOSITION: : FINAL REVIEWER: FINAL REVIEW DATE: DCP Focus Questions & Answers DCP Screen QUESTION: ANSWER High Risk Factors: : Hosp related to CHF, COPD, DM, End Stage Ds, CVA, CA DCP Evaluation QUESTION: ANSWER Patient and/or caregiver agree upon recommended discharge plan? : Yes Family / Caregiver's ability to cope with chronic illness: : a. Adequate (ability to meet patient's medical needs, ensures patient attends medical appts.) Patient's current cognitive status: : *Oriented to person, place, situation, time and present Patient's ability to cope with chronic illness : a. Adequate (0-3 ED visits in 6 mos., adequate financial resources, attends scheduled appts.) Does the patient have the ability to pay for or attain post discharge needs / services? : Yes Functional screen assessment: : Basic needs can adequately be met by self Family / Caregiver's ability to cope with chronic illness: : a. Adequate (ability to meet patient's medical needs, ensures patient attends medical appts.) Physical Status: : Independent with ADL's Equipment needed for post hospitalization: : Nebulizer Equipment needed for post hospitalization: : Home Oxygen with Nasal Cannula Is there a likelihood that the patient will require additional services to return to the preadmission environment? : No Living Arrangements: : Home with Spouse/Significant Other Other Equipment comments: : Patient signed [employer]GR[employer] for Delphine PEREZ. Results of this evaluation have been discussed with: : Patient Patient with capacity for self-care or can be cared for in same environment as prior to hospitalization? : Yes Baseline cognitive status: : *Oriented to person, place, situation, time and present Physical environment modification needed / anticipated for discharge: : No Preadmission facility can/cannot provide post hospital level of care needs: : Can - at same level of care as preadmission Medication Management: : Patient states can afford medications Planned post hospital services available for patient? : Yes Pharmacy name(s): : [facility] [place] [place] Planned post hospital services covered by insurance plan? : Yes Does Patient have transportation to get home and to follow-up medical appointments when discharged from the hospital? : Yes Comments: : Significant other, Gerry Randall will transport to MD appointments, pharmacy, and home. Would patient like to participate in any Care Coordination programs (if applicable): : Not applicable Does the patient have electricity at home? : Yes Does the patient have running water in their house? : Yes Equipment in use: : None Mental health screen: : No mental health history Psychosocial status: : Independent adult (65+) Abuse/Neglect: : None Resources / Services in place: : None DCP Re-evaluation QUESTION: ANSWER Would patient like to participate in any Care Coordination programs (if applicable): : Not applicable PATIENT: ISABELLE LI ENCOUNTER: [id number] MEDICAL RECORD#: [id number] ADMISSION DATE: 10/30/2020 DISCHARGE DATE: ATTENDING MD: GRAY ELIZONDO : AGE: 75 MARITAL STATUS: D DC PLAN ID: [id number] FACILITY: [facility] PRINTED ON: 11/07/20 14:40 CT All edits/amendments must be made on the electronic document DICTATION DATE: 11/07/201439 ARC AND GAS WELDER: ADRIAN 11/07/201439 RPT#: [id number] DC DATE: STATUS: ADM IN [facility] [address] [place] [address] END OF REPORT
--- NOTE | 2020-11-07 14:55 | MORECARE ---
CASE MANAGEMENT DISCHARGE SUMMARY PATIENT: ISABELLE LI UNIT: [id number] ADM DATE: 10/30/20 AGE: 75 : 47 SEX: F ROOM/BED: [facility] AUTHOR: BELA,DOC PHYSICIAN: REFERRING PHYSICIAN: GRAY ISSA MD DATE OF SERVICE: 11/07/20 Case Management Discharge Planning Summary COMMENTS ENTERED DATE: 11/07/20 14:39 CT COMMENT TYPE: Discharge Planning REVIEWER: Gabriela Damian After obtaining verbal consent, CM met with patient and significant other to discuss discharge planning / needs. CM discussed availability of home health, rehab services, and medical equipment. Patient denies need for home health. Signed NEGRITA for [facility] DME for home O2 and Nebulizer / Neb medication. Denies any other discharge planning needs at this time. CM instructed patient that [facility] will deliver portable O2 tank within the hour and upon discharge DME will deliver O2 concentrator and Nebulizer to patient's home. Instructed patient that Neb medication will be shipped to patient. Dr Issa's nurse, Tahira, instructed patient that they will send her home with an inhaler to get her by until the shipped medication arrives. Patient verbalized understanding and satisfaction with discharge plans. CM called and spoke with Steven at [facility] about orders for O2, Nebulizer, and Atrovent. Faxed records as requested. Patient's PCP is Dr. Kathleen Kolb. CM explained and served DC IMM. Copy on chart. DCP REVIEW SUMMARY ANTICIPATED D/C DATE: 11/07/2020 EXPECTED LOS : 8 CASE STATUS: DCP Initiated INITIAL REVIEW: 11/07/2020 INITIAL REVIEWER: Gabriela Damian FINAL DISCHARGE DISPOSITION: : FINAL REVIEWER: FINAL REVIEW DATE: DCP Focus Questions & Answers DCP Screen QUESTION: ANSWER High Risk Factors: : Hosp related to CHF, COPD, DM, End Stage Ds, CVA, CA DCP Evaluation QUESTION: ANSWER Patient and/or caregiver agree upon recommended discharge plan? : Yes Family / Caregiver's ability to cope with chronic illness: : a. Adequate (ability to meet patient's medical needs, ensures patient attends medical appts.) Patient's current cognitive status: : *Oriented to person, place, situation, time and present Patient's ability to cope with chronic illness : a. Adequate (0-3 ED visits in 6 mos., adequate financial resources, attends scheduled appts.) Does the patient have the ability to pay for or attain post discharge needs / services? : Yes Functional screen assessment: : Basic needs can adequately be met by self Family / Caregiver's ability to cope with chronic illness: : a. Adequate (ability to meet patient's medical needs, ensures patient attends medical appts.) Physical Status: : Independent with ADL's Equipment needed for post hospitalization: : Nebulizer Equipment needed for post hospitalization: : Home Oxygen with Nasal Cannula Is there a likelihood that the patient will require additional services to return to the preadmission environment? : No Living Arrangements: : Home with Spouse/Significant Other Other Equipment comments: : Patient signed NEGRITA for [facility]. Results of this evaluation have been discussed with: : Patient Patient with capacity for self-care or can be cared for in same environment as prior to hospitalization? : Yes Baseline cognitive status: : *Oriented to person, place, situation, time and present Physical environment modification needed / anticipated for discharge: : No Preadmission facility can/cannot provide post hospital level of care needs: : Can - at same level of care as preadmission Medication Management: : Patient states can afford medications Planned post hospital services available for patient? : Yes Pharmacy name(s): : [facility]. [facility] Planned post hospital services covered by insurance plan? : Yes Does Patient have transportation to get home and to follow-up medical appointments when discharged from the hospital? : Yes Comments: : Significant other, Gerry Randall will transport to MD appointments, pharmacy, and home. Would patient like to participate in any Care Coordination programs (if applicable): : Not applicable Does the patient have electricity at home? : Yes Does the patient have running water in their house? : Yes Equipment in use: : None Mental health screen: : No mental health history Psychosocial status: : Independent adult (65+) Abuse/Neglect: : None Resources / Services in place: : None DCP Re-evaluation QUESTION: ANSWER Would patient like to participate in any Care Coordination programs (if applicable): : Not applicable PATIENT: ISABELLE LI ENCOUNTER: [id number] MEDICAL RECORD#: [id number] ADMISSION DATE: 10/30/2020 DISCHARGE DATE: ATTENDING MD: GRAY ELIZONDO : AGE: 75 MARITAL STATUS: D DC PLAN ID: [id number] FACILITY: [facility] PRINTED ON: 11/07/20 14:55 CT All edits/amendments must be made on the electronic document DICTATION DATE: 11/07/201454 SEMICONDUCTOR PROCESSOR: ADRIAN 11/07/201454 RPT#: [id number] DC DATE: STATUS: ADM IN [facility] [address] [place] [address] END OF REPORT
--- NOTE | 2020-11-07 15:00 | NUR ---
REASSESSMENT COMPLETED. NO CHANGES. VSS.
--- NOTE | 2020-11-07 16:44 | NUR ---
PATIENT GIVEN DISCHARGE INSTRUCTIONS, AT BEDSIDE, VERBALIZES UNDERSTANDING. DISCHARGED TO HOME VIA WHEEL CHAIR ON PORTABLE 02 AT 2 LPM.
[2020-11-08 11:11] LABS: FUNGUS STAIN Final report (())
== END 2020-11-07 16:45 | disposition home or self-care (01) | DRG 164 ==
LOC: D.SDCHOLD 10-30 05:10 → D.CVICU 10-30 05:10 → D.SDCHOLD 10-30 07:30 → D.CVICU 10-30 12:17
PROVIDERS: Emergency Medicine; Family Medicine; Family Medicine Adult Medicine; Internal Medicine Pulmonary Disease; ADMIT Thoracic Surgery (Cardiothoracic Vascular Surgery); ATTEND Thoracic Surgery (Cardiothoracic Vascular Surgery)
PROC: 0BTG4ZZ Resection of Left Upper Lung Lobe, Percutaneous Endoscopic Approach (ICD-10-PCS; principal; 2020-10-30 07:30)
PROC: 07B74ZZ Excision of Thorax Lymphatic, Percutaneous Endoscopic Approach (ICD-10-PCS; 2020-10-30 07:30)
PROC: 0BB Respiratory System, Excision (ICD-10-PCS; 2020-10-30 07:30)
PROC: 0BJ08ZZ Inspection of Tracheobronchial Tree, Via Natural or Artificial Opening Endoscopic (ICD-10-PCS; 2020-10-30 07:30)
PROC: 0B9M8ZX Drainage of Bilateral Lungs, Via Natural or Artificial Opening Endoscopic, Diagnostic (ICD-10-PCS; 2020-11-03)
DX: C34.12 Malignant neoplasm of upper lobe, left bronchus or lung (principal); E87.1 Hypo-osmolality and hyponatremia; J93.82 Other air leak; J98.11 Atelectasis; H26.9 Unspecified cataract; E03.9 Hypothyroidism, unspecified; I10 Essential (primary) hypertension; Z85.72 Personal history of non-Hodgkin lymphomas; Z78.0 Asymptomatic menopausal state; Z87.891 Personal history of nicotine dependence; E78.5 Hyperlipidemia, unspecified; K57.90 Diverticulosis of intestine, part unspecified, without perforation or abscess without bleeding; M19.90 Unspecified osteoarthritis, unspecified site; K21.9 Gastro-esophageal reflux disease without esophagitis; E87.6 Hypokalemia; R00.0 Tachycardia, unspecified; J43.9 Emphysema, unspecified

== ENCOUNTER → 2020-10-26 13:49 | Outpatient (CLI) | payer MEDICARE, BC ==
[~2020-10-26 13:49] MED LIST: BAYER CHEWABLE81 MG PO; CENTRUM SILVER1 EAC3 PO; CRESTOR5 MG PO; MOBIC7.5 MG PO; TRIAMTERENE-HC1 EAC3 PO; VITAMIN B-122500 MCG PO; VITAMIN D325 MC1 PO; [UNRECOGNIZED DRUG - CODE] PO
[2020-10-30 13:26] VITALS: BMI 28.1
== END | disposition home or self-care (01) ==
LOC: D.RT → EDBD 15:00 → D.RT 15:00
PROVIDERS: ATTEND Thoracic Surgery (Cardiothoracic Vascular Surgery)
DX: C34.90 Malignant neoplasm of unspecified part of unspecified bronchus or lung (principal); Z11.52 Encounter for screening for COVID-19; J43.9 Emphysema, unspecified

== ENCOUNTER → 2020-11-13 14:20 | Outpatient (CLI) | payer MEDICARE, BC ==
[2020-11-04 09:09] VITALS: BMI 29.3
[~2020-11-13 14:20] MED LIST changes: +COMBIVENT RESPIM4 GM INH; +HYDROCODON-ACE1 EAC7 PO; +LISINOPRIL2.5 MG PO; +LOPRESSOR25 MG PO
== END | disposition home or self-care (01) ==
LOC: D.LAB 14:20
PROVIDERS: ATTEND Thoracic Surgery (Cardiothoracic Vascular Surgery)
DX: N39.0 Urinary tract infection, site not specified (principal)

== ENCOUNTER 2020-11-19 20:35 | Inpatient (IN) | payer MEDICARE, BC ==
[~2020-11-19] VITALS: Ht 165.1 cm; Wt 60.8 kg
[2020-11-19 21:07] LABS: BASOPHILS 0.3 % (0-2); EOSINOPHILS 0.7 % (0-7); HEMATOCRIT 30.4 % (36.0-48.0); HEMOGLOBIN 10.3 g/dL (12-16); LYMPHOCYTES 7.4 % (15-50); MCH 30.9 pg (26.0-34.0); MCHC 33.9 g/dL (31.0-37.0); MCV 91.2 fL (80.0-100.0); MEAN PLATELET VOLUME 6.2 fL (7.4-10.4); MONOCYTES 9.4 % (2-11); NEUTROPHILS 82.2 % (40-80); PLATELET COUNT 417 10x3/uL (130-400); RBC 3.34 10x6/uL (4.00-5.40); RDW 12.6 % (11.5-14.5); WBC 11.4 10x3/uL (4.8-10.8)
[2020-11-19 21:21] LABS: ANION GAP 11.5 mmol/L (8-16); CALCIUM 9.5 mg/dL (8.5-10.1); CARBON DIOXIDE 29.2 mmol/L (21.0-32.0); CREATININE - SERUM 0.8 mg/dL (0.6-1.3); POTASSIUM - SERUM 4.7 mmol/L (3.5-5.1)
[2020-11-19 21:27] LABS: ALBUMIN 3.1 g/dL (3.4-5.0); BILIRUBIN - TOTAL 0.31 mg/dL (0.2-1.3); PROTEIN - SERUM 6.6 g/dL (6.4-8.2)
[2020-11-19 21:30] VITALS: BP 178/96
--- NOTE | 2020-11-19 21:58 | NUR ---
US FINISHED AT BEDSIDE AT THIS TIME.
[2020-11-19 22:22] VITALS: BP 180/98
[2020-11-19 22:23] LABS: BACTERIA MANY HPF (NONE SEEN); BILIRUBIN NEGATIVE (NEGATIVE); KETONE NEGATIVE (NEGATIVE); NITRITE POSITIVE (NEGATIVE); SQUAMOUS EPITHELIAL 0-5 HPF (0-4); UROBILINOGEN NORMAL mg/dL (< 2)
[2020-11-19 22:27] LABS: UDS - AMPHET NEGATIVE QUAL (NEGATIVE); UDS - BARB NEGATIVE QUAL (NEGATIVE); UDS - BENZO NEGATIVE QUAL (NEGATIVE); UDS - COCAINE NEGATIVE QUAL (NEGATIVE); UDS - OPIATE NEGATIVE QUAL (NEGATIVE); UDS - PCP NEGATIVE QUAL (NEGATIVE); UDS - THC NEGATIVE QUAL (NEGATIVE)
[2020-11-19 23:00] VITALS: BP 196/91
[2020-11-20] VITALS (9 sets, daily range): BP systolic 94–195; BP diastolic 50–98; Ht 165.1 cm; Wt 60.8 kg
[2020-11-20 00:34] LABS: INR 1.13 (0.85-1.17); PROTIME 13.4 SECONDS (11.6-15.0)
[2020-11-20 00:35] LABS: APTT 37.5 SECONDS (22.8-39.4)
--- NOTE | 2020-11-20 08:43 | NUR ---
PATIENT BROUGHT UP BY ED STAFF, RESP EVEN AND NON LABORED, NO S/S OF DISTRESS, AAOX4, QUICKSTART, MED REC AND ADULT HISTORY COMPLETED, NO FURTHER NEEDS AT THIS TIME, PATIENT IS NPO FOR SURGERY WITH BREVING RELATED TO HERNIA, CLIR, BLP
--- NOTE | 2020-11-20 19:00 | NUR ---
REPORT GIVEN BY LIAT ESTRADA
--- NOTE | 2020-11-20 20:00 | NUR ---
STARTED GIVING MEDS. PT HAD AN EPISODE OF VOMITING LIGHT GREEN FLUID. SHE VOMITED X2 FOR TOTAL PROBABLY NOT OVER 20 ML. SHE STATES SHE IS FEELING BETTER SINCE VOMITING SINCE SHE WAS FEELING BLOATED AND NAUSEATED. TALKED TO DR. HERNÁNDEZ PER PHONE AND HE SAID SHE COULD HAVE NS IV AT 75ML/HR. PT WAS EXTREMIELY HAPPY THAT SHE WAS FINALLY GETTING SOME IV FLUIDS. SHE HAS BEEN NPO UNTIL A LITTLE BIT AGO WHEN SHE FOUND OUT HER SURGERY WAS CANCELLED. SHE DRANK SOME WATER BEFORE SHE VOMITED AND SHE STATES SOMETIMES WATER DID THIS TO HER.
--- NOTE | 2020-11-20 20:45 | NUR ---
FINISHED GIVING PT MEDS.
--- NOTE | 2020-11-20 23:10 | NUR ---
PT HAS A NEW BED. HER PREVIOUS BED WOULD MOVE WITHOUT TOUCHING THE CONTROLS. I SAW THIS HAPPEN EARLIER BUT THOUGHT HER LEFT ELBOW WAS MAKING THE BED MOVE. SHE TOLD ME THAT "INDRA IS NOT TOO FRIENDLY" IN THE MIDDLE OF THE NIGHT. SHE HAS BEEN UP IN HER CHAIR WHILE THE PROCESS OF MOVING TOOK PLACE. PT HAD BEEN SLEEPING SOUNDLY BEFORE THIS HAPPENED.
[2020-11-21] VITALS: BP 116/70
--- NOTE | 2020-11-21 00:46 | NUR ---
PT IS ASLEEP.
--- NOTE | 2020-11-21 03:35 | NUR ---
PT IS RESTING QUIETLY WITH HER EYES CLOSED.
[2020-11-21 04:00] VITALS: BP 109/74
[2020-11-21 08:39] VITALS: BP 149/78
--- NOTE | 2020-11-21 10:45 | NUR ---
I have reviewed this patient and I concur with the Shift Assessment completed by the Licensed Practical Nurse today this shift.
--- NOTE | 2020-11-21 11:06 | NUR ---
PATIENT AAOX4 RESP EVEN AND NON LABORED, NO S/S OF DISTRESS, PATIENT STATES SHE IS NAUSEOUS AND VOMITED ALL NIGHT, MEDICATIONS ADMINISTERED WITH NO COMPLICATIONS, NO FURTHER NEEDS AT THIS TIME, CLIR, YASMEENP
[2020-11-21 13:38] VITALS: BP 106/63
--- NOTE | 2020-11-21 16:57 | NUR ---
PT STATES PAIN FREE. STATED "SO FAR SO GOOD" DR QIU AT BEDSIDE SPEAKIGN WITH PATIENT
[2020-11-21 17:11] VITALS: BP 98/45
[2020-11-21 19:51] VITALS: BP 123/50
[2020-11-22] VITALS (7 sets, daily range): BP systolic 89–143; BP diastolic 45–70
--- NOTE | 2020-11-22 03:02 | NUR ---
I have reviewed this patient and I concur with the Shift Assessment completed by the Licensed Practical Nurse today this shift.
--- NOTE | 2020-11-22 11:13 | NUR ---
PATIENT AAOX4 RESP EVEN AND NON LABORED, NO S/S OF DISTRESS, MEDICATIONS ADMINISTERED WITH NO COMPLICATIONS, CHA DRAIN OUTPUT 100, DODSON OUTPUT 350 YELLOW URINE, NO FURTHER NEEDS AT THIS TIME, CLIR, BLP
--- NOTE | 2020-11-22 12:35 | NUR ---
Nutrition Follow-up: POD 1 open strangulated R femoral hernia repair, exlap, small bowel resection. Diet: Clear Liquid - sips of clear liquids and ice chips only No new wt; last wt: 134# (11/20) No new labs Meds noted: Zofran, NS @ 75, electrolyte protocol -Rec advance diet as tolerated per surgery; if unable to advance diet within 48-72 hrs, rec consider nutrition support. -Monitor wt. -RD follow-up: 11/24
--- NOTE | 2020-11-22 13:31 | NUR ---
I have reviewed this patient and I concur with the Shift Assessment completed by the Licensed Practical Nurse today this shift.
[2020-11-23] VITALS (7 sets, daily range): BP systolic 119–169; BP diastolic 64–91
--- NOTE | 2020-11-23 04:45 | NUR ---
I have reviewed this patient and I concur with the Shift Assessment completed by the Licensed Practical Nurse today this shift.
[2020-11-23 10:47] LABS: BASOPHILS 0.5 % (0-2); EOSINOPHILS 1.6 % (0-7); HEMATOCRIT 28.6 % (36.0-48.0); HEMOGLOBIN 9.8 g/dL (12-16); LYMPHOCYTES 7.5 % (15-50); MCH 31.5 pg (26.0-34.0); MCHC 34.1 g/dL (31.0-37.0); MCV 92.6 fL (80.0-100.0); MEAN PLATELET VOLUME 5.9 fL (7.4-10.4); MONOCYTES 9.5 % (2-11); NEUTROPHILS 80.9 % (40-80); PLATELET COUNT 398 10x3/uL (130-400); RBC 3.09 10x6/uL (4.00-5.40); RDW 12.5 % (11.5-14.5); WBC 10.1 10x3/uL (4.8-10.8)
[2020-11-23 11:18] LABS: ALBUMIN 2.4 g/dL (3.4-5.0); ALKALINE PHOSPHATASE 73 U/L (30-120); ALT (SGPT) 22 U/L (10-68); BILIRUBIN - TOTAL 0.23 mg/dL (0.2-1.3); CALC OSMOLALITY 265 mosm/kg (275-300); CALCIUM 8.9 mg/dL (8.5-10.1); CARBON DIOXIDE 26.7 mmol/L (21.0-32.0); CHLORIDE - SERUM 98 mmol/L (98-107); CREATININE - SERUM 0.7 mg/dL (0.6-1.3); GLUCOSE 92 mg/dL (74-106); POTASSIUM - SERUM 4.3 mmol/L (3.5-5.1); PROTEIN - SERUM 5.6 g/dL (6.4-8.2); SODIUM 132 mmol/L (136-145); UREA NITROGEN 15 mg/dL (7-18); eGFR NON AFRICAN AMERICAN 87 mL/min (90-120)
--- NOTE | 2020-11-23 18:20 | NUR ---
PATIENT REMOVED SCDS SINCE SHE IS GETTING UP AND DOWN TO BEDSIDE COMMODE. PATIENT REFUSED TO PUT BACK ON.
--- NOTE | 2020-11-24 05:01 | NUR ---
I have reviewed this patient and I concur with the Shift Assessment completed by the Licensed Practical Nurse today this shift.
[2020-11-24 12:41] VITALS: BP 161/84
--- NOTE | 2020-11-24 12:53 | NUR ---
Nutrition Follow-up: POD 3. Tolerating clears with some nausea. On clears x 2 days; was NPO x 2 days prior to that. -BM. Diet: Clear Liquid - sips of clear liquids & ice chips only No new wt; last wt: 134# (11/20) Labs noted (11/23): Na 132, Alb 2.4 Meds noted: Miralax, Reglan, Zofran, NS @ 75, electrolyte protocol -Rec consider Procal @ 100 mL/hr until able to advance diet past clears; would provide 598 kcal (33-39% est needs) & 72 g protein (92-120% est needs) daily. -Need new wt. -RD will follow up within 3-4 days.
[2020-11-24 15:00] VITALS: BP 122/76
--- NOTE | 2020-11-24 19:00 | NUR ---
REPORT RECEIVED. PATIENT IS AAOX4, LYING IN SEMI-FOWLERS POSITION. NO S/S OF DISTRESS OBSERVED, RR EVEN AND UNLABORED ON 2L O2 VIA NC. PIV TO RT FA, PATENT, INFUSING NS @ 75 AND DILAUDID BOXER OPERATOR 0.2MG. CHA DRAIN TO MID ABDOMEN, EMPTY AND COMPRESSED. PATIENT DENIES FURTHER NEEDS AT THIS TIME. CL IN REACH, BED LOCKED AND LOWERED. AT BEDSIDE. WILL CPOC.
[2020-11-24 20:47] VITALS: BP 166/81
[2020-11-25 00:43] VITALS: BP 182/83
--- NOTE | 2020-11-25 01:00 | NUR ---
I have reviewed this patient and I concur with the Shift Assessment completed by the Licensed Practical Nurse today this shift.
--- NOTE | 2020-11-25 04:44 | NUR ---
EMPTIED 11OCC OF SEROSANGUINOUS FLUID FROM CHA DRAIN
[2020-11-25 05:37] VITALS: BP 196/94
--- NOTE | 2020-11-25 06:45 | NUR ---
BEDSIDE REPORT RECIEVED. PATIENT AWAKE AND ALERT. RESP EVEN AND UNLABORED. O2 VIA NASAL CANNULA IN USE AT 3L IV TO RFA PATENT AND INFUSING FLUIDS.
--- NOTE | 2020-11-25 07:39 | NUR ---
PATIENT AWAKE AND ALERT, RESP EVEN AND UNLABORED ON 3L O2 VIA NASAL CANNULA. LUNG SOUNDS CLEAR LOWER LOBES DIMINISHED. IV TO RIGHT FOREARM PATENT, RUNNING NS AT 75. CHA DRAIN DEFLATED WITH MINIMAL DRAINAGE. DIET INCREASED SLOWLY TOLERATED. BOWEL SOUNDS ACTIVE PATIENT STATES SHE DOES HAVE FLATULANCE. UP WITH MININAL ASSIST.
[2020-11-25 09:17] VITALS: BP 181/97
[2020-11-25 11:57] VITALS: BP 184/93
--- NOTE | 2020-11-25 13:31 | NUR ---
CONTACTED DR. DUNNE FOR ELEVATED BLOOD PRESSURE. ONE TIME ORDER FOR 10MG LASIX IVP AND RECHECK B/P IN 4 HOURS IF NOT DECREASED CONSULT HOSPITALIST.
--- NOTE | 2020-11-25 16:28 | NUR ---
CONTACTED HOSPITALIST DALIA ABOUT BLOOD PRESSURE STILL NOT GOING DOWN AFTER 10MG LASIX IVP. STATED THAT MARIBELL WOULD SEE HER THIS EVENING.
--- NOTE | 2020-11-25 17:32 | NUR ---
I have reviewed this patient and I concur with the Shift Assessment completed by the Licensed Practical Nurse today this shift.
[2020-11-25 19:03] VITALS: BP 194/97
--- NOTE | 2020-11-25 19:45 | NUR ---
REEIVED BEDSIDE REPORT. PT LAYING IN BED A&O X4. PIV TO RIGHT FOREARM PATENT AND INFUSING, NO REDNESS OR SWELLING. INCISION TO MID ABD, DRSG C/D/I. CHA DRAIN TO RIGHT ABD, PATENT AND DRAINING TO SUCTION. SMALL INCISION BELOW CHA DRAIN ON RIGHT ABD, STERISTRIPS IN PLACE. EDUCATED PT ON CL AND NEEDS, VERBALIZED UNDERSTANDING. BED LOW, CL IN REACH.
[2020-11-25 20:40] LABS: HEMOGLOBIN 10.3 g/dL (12-16)
[2020-11-25 20:42] LABS: BASOPHILS 0.2 % (0-2); EOSINOPHILS 3.9 % (0-7); HEMATOCRIT 29.5 % (36.0-48.0); LYMPHOCYTES 6.8 % (15-50); MCH 31.5 pg (26.0-34.0); MCHC 34.9 g/dL (31.0-37.0); MCV 90.1 fL (80.0-100.0); MEAN PLATELET VOLUME 6.1 fL (7.4-10.4); MONOCYTES 10.4 % (2-11); NEUTROPHILS 78.7 % (40-80); PLATELET COUNT 415 10x3/uL (130-400); RBC 3.28 10x6/uL (4.00-5.40); RDW 12.7 % (11.5-14.5); WBC 9.1 10x3/uL (4.8-10.8)
[2020-11-25 21:06] LABS: ALBUMIN 2.5 g/dL (3.4-5.0); ALKALINE PHOSPHATASE 71 U/L (30-120); ALT (SGPT) 21 U/L (10-68); BILIRUBIN - TOTAL 0.28 mg/dL (0.2-1.3); CALCIUM 8.7 mg/dL (8.5-10.1); CARBON DIOXIDE 36.2 mmol/L (21.0-32.0); CHLORIDE - SERUM 96 mmol/L (98-107); CKMB 0.8 U/L (0.0-3.6); CREATINE KINASE 50 UL (21-215); CREATININE - SERUM 0.7 mg/dL (0.6-1.3); MAGNESIUM - SERUM 1.3 mg/dL (1.8-2.4); PRO BNP 1707 pg/mL (0-125); PROTEIN - SERUM 5.9 g/dL (6.4-8.2); SODIUM 134 mmol/L (136-145); UREA NITROGEN 4 mg/dL (7-18); eGFR NON AFRICAN AMERICAN 87 mL/min (90-120)
[2020-11-25 21:08] LABS: CALC OSMOLALITY 266 mosm/kg (275-300); GLUCOSE 142 mg/dL (74-106)
[2020-11-25 21:09] LABS: POTASSIUM - SERUM 2.8 mmol/L (3.5-5.1); TROPONIN-I < 0.017 ng/mL (0.000-0.060)
--- NOTE | 2020-11-25 21:20 | NUR ---
LAB CALLED WITH [facility]. SPOKE WITH MARIBELL CASTILLO AND WILL CONTINUE ELECTROLYTE PROTOCOL AND D/C NS.
--- NOTE | 2020-11-25 21:30 | NUR ---
PTS BP 187/97, HAS BEEN ELEVATED ALL DAY. CALLED MARIBELL CASTILLO, AND RECEIVED NEW ORDERS FOR BP MEDS. IMPLEMENTED NEW ORDERS. WILL CONTINUE TO MONITOR BP.
--- NOTE | 2020-11-26 00:16 | NUR ---
PT C/O PAIN AND ASKED FOR PAIN MEDS. CALLED MD DUNNE, ORDERED MEDS VIA TELEPHONE. AWAITING VERIFICATION FROM PHARM. EDUCATED PT, VERBALIZED UNDERSTANDING. BED LOW, CL IN REACH.
--- NOTE | 2020-11-26 00:20 | NUR ---
CHANGED DRSG TO ABD, HEALING WELL, NO SIGNS OF INFECTION, APPLIED NEW BORDER GAUZE. CHANGED DRSG AROUND CHA DRAIN AND APPLIED NEW STERISTRIPS TO INCISION BELOW DRAIN. PT TOLERATED WELL. BED LOW, CL IN REACH.
[2020-11-26 02:56] LABS: BASOPHILS 0.9 % (0-2); EOSINOPHILS 4.2 % (0-7); HEMOGLOBIN 10.6 g/dL (12-16); LYMPHOCYTES 8.2 % (15-50); MCH 31.7 pg (26.0-34.0); MCHC 35.2 g/dL (31.0-37.0); MCV 90.1 fL (80.0-100.0); MEAN PLATELET VOLUME 6.1 fL (7.4-10.4); MONOCYTES 11.5 % (2-11); NEUTROPHILS 75.2 % (40-80); PLATELET COUNT 442 10x3/uL (130-400); RBC 3.33 10x6/uL (4.00-5.40); RDW 12.4 % (11.5-14.5); WBC 10.6 10x3/uL (4.8-10.8)
[2020-11-26 03:15] LABS: ALBUMIN 2.5 g/dL (3.4-5.0); ALKALINE PHOSPHATASE 67 U/L (30-120); ALT (SGPT) 20 U/L (10-68); BILIRUBIN - TOTAL 0.29 mg/dL (0.2-1.3); CALC OSMOLALITY 264 mosm/kg (275-300); CALCIUM 8.8 mg/dL (8.5-10.1); CARBON DIOXIDE 33.5 mmol/L (21.0-32.0); CHLORIDE - SERUM 95 mmol/L (98-107); CKMB 0.8 U/L (0.0-3.6); CREATINE KINASE 44 UL (21-215); CREATININE - SERUM 0.6 mg/dL (0.6-1.3); GLUCOSE 126 mg/dL (74-106); MAGNESIUM - SERUM 1.4 mg/dL (1.8-2.4); PROTEIN - SERUM 5.7 g/dL (6.4-8.2); SODIUM 133 mmol/L (136-145); UREA NITROGEN 5 mg/dL (7-18); eGFR NON AFRICAN AMERICAN > 90 mL/min (90-120)
[2020-11-26 03:16] LABS: POTASSIUM - SERUM 3.3 mmol/L (3.5-5.1); TROPONIN-I < 0.017 ng/mL (0.000-0.060)
[2020-11-26 04:00] VITALS: BP 137/83
--- NOTE | 2020-11-26 06:30 | NUR ---
BED SIDE REPORT RECIEVED. PATIENT RESTING, NO CURRENT PAIN OR DISTRESS. RESP EVEN AND UNLABORED. REMAINS ON 2L. RIGHT FOREARM IV NS RUNNING KVO.
[2020-11-26 07:44] VITALS: BP 144/84
--- NOTE | 2020-11-26 09:00 | NUR ---
PATIENT AWAKE AND ALERT, NO CURRENT PAIN OR DISTRESS NOTED. RESP EVEN AND UNLABORED. O2 SAT AT 99. CHA DRAIN TO ABDOMEN DRAINING LITTLE TO KNOW DRAINAGE. PATIENT UP AT CRISELDA TO BED SIDE COMMODE WITH ASSIST. IV TO RIGHT FA PATIENT AND RUNNING FLUIDS. BLOOD PRESSURE NORMAL AFTER MEDICATION CHANGES.
[2020-11-26 10:03] LABS: CKMB 0.4 U/L (0.0-3.6); CREATINE KINASE 38 UL (21-215); TROPONIN-I < 0.017 ng/mL (0.000-0.060)
[2020-11-26 12:02] VITALS: BP 151/86
--- NOTE | 2020-11-26 14:04 | NUR ---
PATIENT TO DISCHARGE HOME, DRESSING CLEAN DRY AND INTACT. NO CURRENT DISTRESS NOTED. AT BEDSIDE. AWAITING PAPER WORK.
[2020-11-26] MEDS ORDERED: HYDROCODON-ACE1 EAC7 PO (14:09)
[2020-11-26] MEDS ORDERED: METOPROLOL TART25 MG PO (14:12)
--- NOTE | 2020-11-26 14:15 | NUR ---
PER DR DUNNE TO CALL MEDICAL SERVICE RE HOME MEDICATIONS. CALLED DALIA SOCTT. CONTINUE HOME MEDS MARKED.
--- NOTE | 2020-11-26 16:59 | MORECARE ---
CASE MANAGEMENT DISCHARGE SUMMARY PATIENT: ISABELLE LI UNIT: [id number] ADM DATE: 11/19/20 AGE: 75 : 46 SEX: F ROOM/BED: D.2104 AUTHOR: TREMAYNE CRAMER PHYSICIAN: REFERRING PHYSICIAN: NIKKI QIU MD DATE OF SERVICE: 11/26/20 Case Management Discharge Planning Summary COMMENTS ENTERED DATE: 11/26/20 16:51 CT COMMENT TYPE: Discharge Planning REVIEWER: Yvon Shane CM met with patient to complete DC plan and to evaluate needs. Patient lives independently with her significant other, Gerry Randall, . Patient stated that her home is safe and has electricity and running water. Patient stated that she has no problems paying for medications and she fills her medications at [facility]. Patient stated that her primary care physician is Dr. Kathleen Rocha. At discharge, the patient plans to return home and feels this is a safe discharge. CM discussed availability of home health, rehab services, and medical equipment. Patient declined HHS, SNF, IPR, and DME. Patient voiced no other needs at this time and is satisfied with DC plan. Transportation provider at discharge will be with Gerry. CM will continue to follow and will assist as needed with dc plans/needs. DCP REVIEW SUMMARY ANTICIPATED D/C DATE: 11/26/2020 EXPECTED LOS : 7 CASE STATUS: DCP Initiated INITIAL REVIEW: 11/19/2020 INITIAL REVIEWER: Yvon Shane FINAL DISCHARGE DISPOSITION: : FINAL REVIEWER: FINAL REVIEW DATE: DCP Focus Questions & Answers DCP Evaluation QUESTION: ANSWER Family / Caregiver's ability to cope with chronic illness: : a. Adequate (ability to meet patient's medical needs, ensures patient attends medical appts.) Patient gives permission to discuss discharge plans with: (name, relationship and number) : significant other, Gerry Randall, Patient's ability to cope with chronic illness : d. No chronic illness Patient's current cognitive status: : *Oriented to person, place, situation, time and present Patient and/or caregiver agree upon recommended discharge plan? : Yes Physical Status: : Independent with ADL's Family / Caregiver's ability to cope with chronic illness: : a. Adequate (ability to meet patient's medical needs, ensures patient attends medical appts.) Functional screen assessment: : Basic needs can adequately be met by self Does the patient have the ability to pay for or attain post discharge needs / services? : Yes Living Arrangements: : Home with Spouse/Significant Other Is there a likelihood that the patient will require additional services to return to the preadmission environment? : No Equipment needed for post hospitalization: : None Baseline cognitive status: : *Oriented to person, place, situation, time and present Patient with capacity for self-care or can be cared for in same environment as prior to hospitalization? : Yes Physical environment modification needed / anticipated for discharge: : No Medication Management: : Patient states can afford medications Medication Management: : Patient states can read and understand medication labels Pharmacy name(s): : [facility] Does Patient have transportation to get home and to follow-up medical appointments when discharged from the hospital? : Yes Would patient like to participate in any Care Coordination programs (if applicable): : Not applicable Does the patient have electricity at home? : Yes Does the patient have running water in their house? : Yes Equipment in use: : Home Oxygen with Nasal Cannula Equipment agency name and contact information: : [facility] Mental health screen: : No mental health history DCP Re-evaluation QUESTION: ANSWER Would patient like to participate in any Care Coordination programs (if applicable): : Not applicable PATIENT: ISABELLE IL ENCOUNTER: [id number] MEDICAL RECORD#: [id number] ADMISSION DATE: 11/19/2020 DISCHARGE DATE: 11/26/2020 ATTENDING MD: NIKKI REYES : 1945-Luis AGE: 75 MARITAL STATUS: D DC PLAN ID: [id number] FACILITY: [facility] PRINTED ON: 11/26/20 16:59 CT All edits/amendments must be made on the electronic document DICTATION DATE: 11/26/201658 MEDIA ARTS PROFESSOR: DM 11/26/20 165 RPT#: [id number] DC DATE:11/26/20 STATUS: DIS IN [facility] [address] [place] [address] END OF REPORT
--- NOTE | 2020-11-27 06:45 | MORECARE ---
CASE MANAGEMENT DISCHARGE SUMMARY PATIENT: ISABELLE LI UNIT: [id number] ADM DATE: 11/19/20 AGE: 75 : 46 SEX: F ROOM/BED: D.2104 AUTHOR: TREMAYNE CRAMER PHYSICIAN: REFERRING PHYSICIAN: NIKKI QIU MD DATE OF SERVICE: 11/27/20 Case Management Discharge Planning Summary COMMENTS ENTERED DATE: 11/26/20 16:51 CT COMMENT TYPE: Discharge Planning REVIEWER: Yvon Shane CM met with patient to complete DC plan and to evaluate needs. Patient lives independently with her significant other, Gerry Randall, . Patient stated that her home is safe and has electricity and running water. Patient stated that she has no problems paying for medications and she fills her medications at [facility]. Patient stated that her primary care physician is Dr. Kathleen Rocha. At discharge, the patient plans to return home and feels this is a safe discharge. CM discussed availability of home health, rehab services, and medical equipment. Patient declined HHS, SNF, IPR, and DME. Patient voiced no other needs at this time and is satisfied with DC plan. Transportation provider at discharge will be with Gerry. CM will continue to follow and will assist as needed with dc plans/needs. DCP REVIEW SUMMARY ANTICIPATED D/C DATE: 11/26/2020 EXPECTED LOS : 7 CASE STATUS: DCP Complete INITIAL REVIEW: 11/19/2020 INITIAL REVIEWER: Yvon Shane FINAL DISCHARGE DISPOSITION: 01 : Home or Self Care (Routine Discharge) FINAL REVIEWER: Yvon Shane FINAL REVIEW DATE: 11/27/2020 DCP Focus Questions & Answers DCP Evaluation QUESTION: ANSWER Patient and/or caregiver agree upon recommended discharge plan? : Yes Family / Caregiver's ability to cope with chronic illness: : a. Adequate (ability to meet patient's medical needs, ensures patient attends medical appts.) Patient's current cognitive status: : *Oriented to person, place, situation, time and present Patient's ability to cope with chronic illness : d. No chronic illness Patient gives permission to discuss discharge plans with: (name, relationship and number) : significant other, Gerry Randall, Does the patient have the ability to pay for or attain post discharge needs / services? : Yes Functional screen assessment: : Basic needs can adequately be met by self Family / Caregiver's ability to cope with chronic illness: : a. Adequate (ability to meet patient's medical needs, ensures patient attends medical appts.) Physical Status: : Independent with ADL's Equipment needed for post hospitalization: : None Is there a likelihood that the patient will require additional services to return to the preadmission environment? : No Living Arrangements: : Home with Spouse/Significant Other Patient with capacity for self-care or can be cared for in same environment as prior to hospitalization? : Yes Baseline cognitive status: : *Oriented to person, place, situation, time and present Physical environment modification needed / anticipated for discharge: : No Medication Management: : Patient states can read and understand medication labels Medication Management: : Patient states can afford medications Pharmacy name(s): : [facility] Does Patient have transportation to get home and to follow-up medical appointments when discharged from the hospital? : Yes Would patient like to participate in any Care Coordination programs (if applicable): : Not applicable Does the patient have electricity at home? : Yes Does the patient have running water in their house? : Yes Equipment in use: : Home Oxygen with Nasal Cannula Equipment agency name and contact information: : [facility] screen: : No mental health history DCP Re-evaluation QUESTION: ANSWER Would patient like to participate in any Care Coordination programs (if applicable): : Not applicable PATIENT: ISABELLE LI ENCOUNTER: [id number] MEDICAL RECORD#: [id number] ADMISSION DATE: 11/19/2020 DISCHARGE DATE: 11/26/2020 ATTENDING MD: NIKKI REYES : AGE: 75 MARITAL STATUS: D DC PLAN ID: [id number] FACILITY: [facility] PRINTED ON: 11/27/20 6:45 CT All edits/amendments must be made on the electronic document DICTATION DATE: 11/27/20644 MANAGER DOMESTIC: ADRIAN 11/27/20644 RPT#: [id number] DC DATE:11/26/20 STATUS: DIS IN [facility] [address] [place] [address] END OF REPORT
== END 2020-11-26 15:00 | disposition home or self-care (01) | DRG 330 ==
LOC: D.ER 20:35 → D.EDHOLD 23:50 → D.M2 23:50
PROVIDERS: Emergency Medicine; Family Medicine; ADMIT Surgery; ATTEND Surgery
PROC: 0YU70JZ Supplement Right Femoral Region with Synthetic Substitute, Open Approach (ICD-10-PCS; principal; 2020-11-21 08:45)
PROC: 0DT80ZZ Resection of Small Intestine, Open Approach (ICD-10-PCS; 2020-11-21 08:45)
DX: K40.30 Unilateral inguinal hernia, with obstruction, without gangrene, not specified as recurrent (principal); C85.95 Non-Hodgkin lymphoma, unspecified, lymph nodes of inguinal region and lower limb; I10 Essential (primary) hypertension; Z87.891 Personal history of nicotine dependence; M19.90 Unspecified osteoarthritis, unspecified site; J44.9 Chronic obstructive pulmonary disease, unspecified; E03.9 Hypothyroidism, unspecified

== ENCOUNTER → 2020-11-29 12:19 | Outpatient (CLI) | payer MEDICARE, BC ==
[2020-11-20 21:28] VITALS: BMI 22.2
[~2020-11-29 12:19] MED LIST changes: +METOPROLOL TART25 MG PO
== END | disposition home or self-care (01) ==
LOC: D.US 12:19
PROVIDERS: ATTEND Nurse Practitioner
DX: R22.41 Localized swelling, mass and lump, right lower limb (principal)

== ENCOUNTER → 2020-12-05 12:49 | Outpatient (CLI) | payer MEDICARE, BC ==
[2020-11-20 21:28] VITALS: BMI 22.2
== END | disposition home or self-care (01) ==
LOC: D.RAD 12:49
PROVIDERS: ATTEND Surgery
DX: R06.2 Wheezing (principal)